=== PATIENT | female | born 1950 | race African-American/Black ===

== ENCOUNTER 2018-02-07 11:56 | Observation (INO) | payer MEDICARE ==
[2018-02-07] MEDS ORDERED: Water For Inject, Bacteriostat 30 ML ONE (12:36)
[2018-02-07] MEDS ORDERED: methylPREDNISolone Sod Succ/PF 125 MG/2 ML VIAL ONE (12:36)
[2018-02-07] MEDS ORDERED: Albuterol Sulfate 2.5 mg/3 ml Neb ONE (12:44)
[2018-02-07] MEDS ORDERED: Albuterol Sulfate 2.5 mg/0.5 ml Neb ONE (12:44)
[2018-02-07 12:55] LABS: Bilirubin Negative (Negative); Blood, Urine Trace (Negative); Clarity CLEAR (Clear); Glucose, Urine (Dipstick) 100 mg/dL (Negative); Leukocyte Negative (Negative); Nitrite Negative (Negative); Protein, Urine (Dipstick) 100 mg/dL (Neg-Trace); Urobilinogen 0.2 mg/dL (0.2-1.0)
[2018-02-07 12:57] LABS: Bacteria/HPF None Seen HPF (None Seen); Hyaline Casts/LPF 0-3 HYALINE CAST LPF (0-3 Hyaline); Pathc Cast-AUWi Flag 0.14 (0-2.49); RBC/HPF 0-3 HPF (0-3); Squamous Epithelial 0-3 HPF (0-3); WBC/HPF 0-3 HPF (0-3)
[2018-02-07 12:58] LABS: #Basophils 0.1 thou/uL (0.0-0.2); #Lymphocytes 0.5 thou/uL (1.20-3.40); #Monocytes 0.3 thou/uL (0.11-0.59); #Neutrophils 6.3 thou/uL (1.40-6.50); %Eosinophils 0.4 % (0.0-10.0); %Lymphocytes 6.8 % (21.0-51.0); %Monocytes 4.7 % (0.0-10.0); %Neutrophils 87.1 % (42.0-75.0); Hemoglobin 11.1 g/dL (12.0-16.0); Mean Corpuscular HGB CONC 30.1 g/dL (32.0-36.0); Mean Corpuscular Hemoglobin 24.4 pg (27.0-31.0); Mean Platelet Volume 8.6 fL (7.4-10.4); Platelet Count 257 thou/uL (130-400); RBC Distribution Width 16.6 % (11.5-14.5); Red Blood Cell (RBC) Count 4.57 mill/uL (4.20-5.40); White Blood Cell (WBC) Count 7.2 thou/uL (4.8-10.8)
--- NOTE | 2018-02-07 13:05 | RAD ---
PORTABLE CHEST ONE VIEWS: 02/07/2018 12:27 p.m. HISTORY: Shortness of breath. COMPARISON: 02/02/2018 FINDINGS: The heart size is enlarged but stable. The aorta is normal. The lungs are well expanded without foc al areas of consolidation, pneumothorax, rizwan pulmonary edema, or pleural effusions. There are dege nerative changes in the spine. IMPRESSION: No acute process. POS: ALPHONSO
[2018-02-07 13:19] LABS: ALT (SGPT) 115 U/L (8-55); AST (SGOT) 68 U/L (5-34); Albumin 4.2 g/dL (3.4-4.8); Alkaline Phosphatase 140 U/L (40-150); Anion Gap 15 mmol/L (10-20); BUN (Urea Nitrogen) 13 mg/dL (9.8-20.1); Bilirubin, Total 0.3 mg/dL (0.2-1.2); CK (CPK) 208 U/L (29-168); Calc. Creatinine Clearance 0 mL/min (70-130); Calcium 9.1 mg/dL (7.8-10.44); Carbon Dioxide 29 mmol/L (23-31); Chloride 105 mmol/L (98-107); Estimated GFR-MDRD 66; Globulin 2.7 g/dL (2.4-3.5); Glucose 105 mg/dL (80-115); Lipase 20 U/L (8-78); Magnesium 1.8 mg/dL (1.6-2.6); Protein, Total 6.9 g/dL (6.0-8.3); Sodium 145 mmol/L (136-145)
[2018-02-07 13:22] LABS: CKMB 6.3 ng/mL (0-6.6); Troponin I 0.082 ng/mL (< 0.028)
--- NOTE | 2018-02-07 15:23 | HP ---
PRIMARY CARE PHYSICIAN: The patient was following Dr. Bull at [place], but now she changed p [facility] care physician to Dr. Denis Lin at [facility]. REASON FOR ADMISSION: COPD and CHF exacerbation. HISTORY OF PRESENT ILLNESS: A 67-year-old female who has end-stage COPD, chronic re spiratory failure with hypoxia on home oxygen therapy as well as chronic diastolic heart failure who came to emergency room with complaint of shortness of breath and chest pain. Patient has chronic quin rtness of breath, but for last 2-3 days, she was having worsening shortness of breath. Today, she wa s also experiencing chest pain, which was across the chest without any radiation, associated with mil d nausea, but no vomiting. She did not have any fever, chills, or flu-like illness. She also denies any cough. She denies any recent travel or sick exposure. She denies any lower extremity edema or calf tenderness. She denies any hemoptysis, pleuritic chest pain. She denies any syncope, but she f eels dizziness on coughing spell. She does have chronic orthopnea. She denies any PND. She denies any UTI symptoms. She denies any constipation, diarrhea, melena, or hematochezia. Patient also had several emergency room visits latterly at the [place] as well as in our hospita , but most of the time after respiratory therapy, the patient gets better and she declines hospitali zation. Today in the emergency room, patient was feeling better after breathing treatment, but when she walked to the bathroom, she was having chest pain and shortness of breath and that is why she agr eed to stay in hospital. Patient was given DuoNeb therapy, albuterol nebulization, Solu-Medrol 125 mg prior to arrival by [facility]. REVIEW OF SYSTEMS: The following complete review of systems was negative, unless otherwise mentioned in the HPI or below: Constitutional: Weight loss or gain, ability to conduct usual activities. Skin: Rash, itching. Eyes: Double vision, pain. ENT/Mouth: Nose bleeding, neck stiffness, pain, tenderness. Cardiovascular: Palpitations, dyspnea on exertion, orthopnea. Respiratory: Shortness of breath, wheezing, cough, hemoptysis, fever or night sweats. Gastrointestinal: Poor appetite, abdominal pain, heartburn, nausea, vomiting, constipation, or diarr hea. Genitourinary: Urgency, frequency, dysuria, nocturia. Musculoskeletal: Pain, swelling. Neurologic/Psychiatric: Anxiety, depression. Allergy/Immunologic: Skin rash, bleeding tendency. Please see my HPI for pertinent positive and negative. All other review of systems reviewed and nega tive except as mentioned in the HPI. PAST MEDICAL HISTORY: Chronic respiratory failure on home oxygen 3 liter nasal cannula, COPD, chroni c diastolic heart failure, history of CVA, hypertension, chronic low back pain. The patient reports that she has history of lupus and history of uterine cancer, hyperthyroidism. PAST SURGICAL HISTORY: Hysterectomy, oophorectomy. PAST PSYCHIATRIC HISTORY: Bipolar disorder. ALLERGIES: SULFA DRUGS and LATEX. FAMILY HISTORY: Positive for hypertension and dementia to her mother. No family history of coronary artery disease, stroke or cancer. SOCIAL HISTORY: The patient is intermittently smoking, but she was a heavy smoker in the past. She drinks alcohol socially. She denies any other illicit drug abuse. She lives with her grandchildren. CURRENT HOME MEDICATIONS: Toprol-XL 100 mg p.o. daily, aspirin 325 mg p.o. daily, nitroglycerin 0.4 mg sublingual p.r.n., Imdur 60 mg p.o. daily, multivitamin 1 tablet p.o. daily, Spiriva 18 mcg inhala tion daily, lisinopril with hydrochlorothiazide 20/25 one tablet p.o. daily, prednisone as needed bas is, tramadol 50 mg q.8 hours p.r.n., Singulair 10 mg p.o. daily, propylthiouracil 50 mg p.o. twice da inez. ADDITIONAL HISTORY: Patient reports that she ran out prednisone and tramadol, and she was taking her niece prescription. EMERGENCY ROOM COURSE: Patient is given albuterol nebulization, DuoNeb therapy, Solu-Medrol 125 mg. PHYSICAL EXAMINATION: VITAL SIGNS: On arrival, blood pressure 176/112, pulse 87, respiratory rate 27, temperature 98.6, sa turation 97% on 3 liter oxygen. Weight 68 kilograms. GENERAL: The patient is currently chronically ill, tachypneic, no obvious acute distress. HEENT: Head is normocephalic, atraumatic. Eyes: Pupils round, reactive to light. Extraocular musc le intact. ENT: Oropharynx within normal limits. Moist mucous membranes. No oral lesion, no phary ngeal erythema, no exudate. NECK: Supple, no JVD, no thyromegaly, no carotid bruit. LUNGS: Bibasilar rales noted. Air entry reduced. Few end expiratory wheezing heard. CARDIAC: S1, S2 regular. No gross murmur noted, no gallop, no rub. ABDOMEN: Soft, bowel sounds present, nontender, nondistended. No organomegaly, no mass, no suprapub ic tenderness. BACK: Unremarkable, no CVA tenderness. EXTREMITIES: Upper extremity, passive movement of all joints are normal. Lower extremity, no edema . Good peripheral pulsation. SKIN: No skin rash. HEMATOLOGICAL: No lymphadenopathy. PSYCHIATRIC: Normal affect. NEUROLOGIC: Nonfocal examination. Speech normal. SIGNIFICANT LABORATORY DATA AND IMAGING: EKG showing premature supraventricular complexes, nonspecif ic ST-T changes, LVH, left atrial enlargement. Chest x-ray: COPD changes, no acute cardiopulmonary process. CBC: WBC 7.2, hemoglobin 11.1, platelet of 257,000. BMP: Sodium 145, potassium 4.0, chlo ride 105, carbon dioxide 29, anion gap 15, BUN 13, creatinine 1.01, glucose 105, calcium 9.1, magnesi um 1.8. LFT: AST 68, ALT 115, albumin 4.2, CK 208, CK-MB 6.3, troponin I 0.082. BNP 2501.4, lipase 20. Urinalysis unremarkable. ASSESSMENT AND PLAN: 1. Acute on chronic respiratory failure with hypoxia. The patient is using 3 liter nasal cannula ox ygen. Initially, patient was hypoxic and now stabilized with her basal home oxygen 3 liter nasal can nula and maintaining saturation very well, most likely related with underlying chronic obstructive p ulmonary disease and congestive heart failure exacerbation. 2. Chronic obstructive pulmonary disease exacerbation. We will continue DuoNeb therapy every 4 hour ly, Dulera two puffs inhalation b.i.d. We will also continue her home Spiriva 18 mcg inhalation tristin y, along with the Solu-Medrol 40 mg IV q.6 hours, Mucinex 600 mg twice daily and empiric antibiotic t herapy with Levaquin 500 mg daily, Mucinex 600 mg twice daily. We will consider changing to predniso ne and tapered dose tomorrow. We will also consider changing to p.o. antibiotic therapy tomorrow. 3. Congestive heart failure exacerbation. We will obtain echocardiography, most likely diastolic he art failure. She might have underlying chronic hypoxia related pulmonary hypertension and passive co ngestion in her liver. At this point, we will obtain echocardiography to assess ejection fraction an d other structural abnormality. We will also give her Lasix 20 mg IV b.i.d. 4. Elevated troponin. We will do serial cardiac enzymes x3 to rule out acute coronary syndrome. I am suspecting this is probably demand ischemia. We will continue with aspirin 81 mg p.o. daily. We are going to obtain echocardiography to assess ejection fraction and other structural abnormality and we will control blood pressure. We will check lipid profile for risk stratification. 5. Transaminitis. We will check hepatitis profile. I am suspecting this abnormal LFT related with her passive congestion, but we will repeat LFT tomorrow and we will rule out any hepatitis. 6. Hyperthyroidism. We will check TSH and free T4 tomorrow and continue propylthiouracil 50 mg p.o. twice daily. 7. Hypertension. Currently, not well controlled. We will continue lisinopril with hydrochlorothiaz julio 20/25 one tablet p.o. daily. We will use hydralazine on p.r.n. basis. We will also continue nit ropatch q.8 hourly. 8. Chest pain. The patient had a couple of times chest pain today, which is atypical, most likely r elated with her dyspnea. We will do serial cardiac enzymes to rule out acute coronary syndrome. We will obtain echocardiography. We will check lipid profile. We will continue with aspirin 325 mg p.o . daily, nitropatch q.8 hourly. Given her history of chronic obstructive pulmonary disease, we will try to change her Toprol-XL to Coreg to prevent bronchospasm. 9. Protein calorie malnutrition, mild. The patient will be given nutritional supplement while in [facility]. 10. History of coronary artery disease. We will continue nitropatch q.8 hourly along with aspirin, REBECCA inhibitor. 11. Deep venous thrombosis prophylaxis. Lovenox 30 mg subcutaneously daily. 12. Gastrointestinal prophylaxis, Pepcid 20 mg p.o. b.i.d. 13. Code status: The patient is FULL CODE. Patient's daughter is surrogate decision maker. Disposition plan based on clinical course. At this point, we are expecting that patient will stay in hospital 24-48 hours. The patient by herself wants to go home tomorrow if possible. We will keep a s observation status.
[2018-02-07] MEDS ORDERED: hydrALAZINE 20 MG/ML VIAL SLOW IVP PRN (15:37)
[2018-02-07] MEDS ORDERED: Loratadine 10 MG TAB PO PRN (15:37)
[2018-02-07] MEDS ORDERED: Artificial Tears 18 DROP/0.9 ML EA EYE PRN (15:37)
[2018-02-07] MEDS ORDERED: Ondansetron HCl/PF 4 MG/2 ML Vial IVP PRN (15:37)
[2018-02-07] MEDS ORDERED: Chloraseptic Spray 180 ml Bottle PO PRN (15:37)
[2018-02-07] MEDS ORDERED: Milk Of Magnesia 30 ML UDCUP PO PRN (15:37)
[2018-02-07] MEDS ORDERED: Acetaminophen 325 MG TAB PO PRN (15:37)
[2018-02-07] MEDS ORDERED: Benzonatate 100 MG CAP PO PRN (15:37)
[2018-02-07] MEDS ORDERED: Loperamide HCl 2 MG CAP PO PRN (15:37)
[2018-02-07] MEDS ORDERED: Sodium Chloride 0.65% Nasal 44 ML BOT EA NARE PRN (15:37)
[2018-02-07] MEDS ORDERED: Eucerin (Mineral Oil/Petrolatum,White) 30 gm Jar TOP PRN (15:37)
[2018-02-07] MEDS ORDERED: Nitroglycerin 0.4 MG TAB (25 Tab Bottle) SL PRN (15:37)
[2018-02-07] MEDS ORDERED: HYDROcodone/Acetaminophen 5/325 mg Tablet PO PRN (15:37)
[2018-02-07] MEDS ORDERED: Diabetic Tussin 200 MG/10 ML UDCUP PO PRN (15:37)
[2018-02-07] MEDS ORDERED: cloNIDine 0.1 MG TAB PO PRN (15:37)
[2018-02-07] MEDS ORDERED: Zolpidem Tartrate 5 MG TAB PO PRN (15:37)
[2018-02-07] MEDS ORDERED: Mag-Al 1200 mg/1200 mg/30 ML UDCUP PO PRN (15:37)
[2018-02-07] MEDS ORDERED: Senokot 8.6 MG TAB PO PRN (15:37)
[2018-02-07 16:52] LABS: Troponin I 0.077 ng/mL (< 0.028)
[2018-02-07] MEDS: Mometasone/Formoterol 120 PUFF INHALER INH SCH (18:45)
[2018-02-07 19:29] LABS: Troponin I 0.068 ng/mL (< 0.028)
[2018-02-07] MEDS: Propylthiouracil 50 MG TAB PO SCH (21:01)
[2018-02-07] MEDS: Nitroglycerin 2% Ointment 1 INCH/1 GM Packet TOP SCH (21:01)
[2018-02-07] MEDS: guaiFENesin ER 600 MG TAB PO SCH (21:02)
[2018-02-07] MEDS: Famotidine 20 MG TAB PO SCH (21:02)
[2018-02-07] MEDS: Montelukast Sodium 10 mg Tablet PO SCH (21:02)
[2018-02-08 05:15] LABS: #Lymphocytes 0.3 thou/uL (1.20-3.40); #Monocytes 0.2 thou/uL (0.11-0.59); #Neutrophils 6.9 thou/uL (1.40-6.50); %Basophils 0.1 % (0.0-1.0); %Eosinophils 0.1 % (0.0-10.0); %Lymphocytes 4.1 % (21.0-51.0); %Monocytes 2.4 % (0.0-10.0); %Neutrophils 93.2 % (42.0-75.0); Hemoglobin 10.2 g/dL (12.0-16.0); Mean Corpuscular HGB CONC 31.2 g/dL (32.0-36.0); Mean Corpuscular Hemoglobin 24.4 pg (27.0-31.0); Mean Corpuscular Volume 78.2 fl (81.0-99.0); Mean Platelet Volume 8.4 fL (7.4-10.4); Platelet Count 250 thou/uL (130-400); RBC Distribution Width 16.4 % (11.5-14.5); Red Blood Cell (RBC) Count 4.18 mill/uL (4.20-5.40); White Blood Cell (WBC) Count 7.4 thou/uL (4.8-10.8)
[2018-02-08 05:31] LABS: ALT (SGPT) 88 U/L (8-55); AST (SGOT) 39 U/L (5-34); Albumin 3.7 g/dL (3.4-4.8); Alkaline Phosphatase 114 U/L (40-150); Anion Gap 10 mmol/L (10-20); BUN (Urea Nitrogen) 21 mg/dL (9.8-20.1); Bilirubin, Total 0.2 mg/dL (0.2-1.2); Calc. Creatinine Clearance 31 mL/min (70-130); Calcium 9.3 mg/dL (7.8-10.44); Carbon Dioxide 28 mmol/L (23-31); Cardiac Risk 2.5 (Less than 4.5); Chloride 105 mmol/L (98-107); Cholesterol 193 mg/dl (< 200 Desired); Estimated GFR-MDRD 52; Globulin 2.7 g/dL (2.4-3.5); Glucose 146 mg/dL (80-115); HDL Cholesterol 78 mg/dL (>60 Neg Risk); LDL Cholesterol, Calculated 109 mg/dL; Potassium 3.8 mmol/L (3.5-5.1); Protein, Total 6.4 g/dL (6.0-8.3); Sodium 139 mmol/L (136-145); Triglycerides 31 mg/dL (Less than 150); Uric Acid 4.9 mg/dL (2.6-6.0)
[2018-02-08] MEDS: Furosemide 20 MG/2 ML VIAL SLOW IVP SCH ×2 (05:35→16:31)
[2018-02-08] MEDS: Nitroglycerin 2% Ointment 1 INCH/1 GM Packet TOP SCH ×3 (05:41→23:10)
[2018-02-08 05:44] LABS: Free T4 (Free Thyroxine) 1.15 ng/dL (0.70-1.48)
[2018-02-08 05:58] LABS: HBCM Index 0.06 S/CO (0-0.79); HBSAg Index 0.23 S/CO (0-0.99); Hep A IgM AB Non-Reactive (NonReactive); Hep A IgM S/CO 0.12 S/CO (0-0.79); Hep B Surf Ag Non-Reactive S/CO (NonReactive); Hep C IgG Ab Non-Reactive (NonReactive); Hep C Index 0.21 S/CO (0-0.79); Hepatitis B Core IGM Abs Non-Reactive (NonReactive)
[2018-02-08] MEDS: Mometasone/Formoterol 120 PUFF INHALER INH SCH ×2 (06:28→18:09)
[2018-02-08] MEDS ORDERED: Spiriva 18 MCG CAP (Box of 5 Caps) INH SCH (07:00)
[2018-02-08] MEDS: Lisinopril/Hydrochlorothiazide 20/25 mg Tablet PO SCH (09:54)
[2018-02-08] MEDS: Propylthiouracil 50 MG TAB PO SCH ×2 (09:54→20:19)
[2018-02-08] MEDS: Famotidine 20 MG TAB PO SCH ×2 (09:54→20:16)
[2018-02-08] MEDS: Multivitamin W/ Minerals 1 TAB PO SCH (09:54)
[2018-02-08] MEDS: Aspirin 325 MG TAB PO SCH (09:54)
[2018-02-08] MEDS: guaiFENesin ER 600 MG TAB PO SCH ×2 (09:54→20:18)
[2018-02-08] MEDS: Enoxaparin Sodium 30 MG/0.3 ML SYRINGE SC SCH (09:55)
[2018-02-08] MEDS: Ondansetron ODT 4 MG TAB PO PRN ×2 (12:25→23:19)
[2018-02-08 13:53] VITALS: BMI 17.8
[2018-02-08] MEDS: Montelukast Sodium 10 mg Tablet PO SCH (20:18)
--- NOTE | 2018-02-08 21:48 | PDOC.PN ---
- Subjective Encounter Start Date: 02/08/18 Encounter Start Time: 14:00 Subjective: nsg notes rev, gabriela ovn, pt still c/o SOB and feeling weak - Objective Resuscitation Status: Resuscitation Status FULL:Full Resuscitation Vital Signs & Weight: Vital Signs (12 hours) Temp Pulse Resp BP Pulse Ox 02/08/18 21:31 87 16 98 02/08/18 18:45 98.0 F 94 12 124/82 99 02/08/18 18:08 85 16 98 02/08/18 15:17 98.3 F 88 18 122/75 98 02/08/18 14:44 88 16 02/08/18 11:16 98.4 F 97 20 180/103 H 100 02/08/18 09:54 100 Weight Admit Weight 103 lb Weight 103 lb 12.8 oz I&O: 02/07/18 02/08/18 02/09/18 06:59 06:59 06:59 Intake Total 720 2 Balance 720 2 Result Diagrams: 02/08/18 04:30 02/08/18 04:30 Phys Exam - Physical Examination Constitutional: NAD seated in hospital bed, NC in place HEENT: moist MMs, sclera anicteric, oral pharynx no lesions Respiratory: no wheezing, no rales, no rhonchi, clear to auscultation bilateral diminished and coarse throughout Cardiovascular: RRR, no significant murmur, no rub Gastrointestinal: soft, no distention, positive bowel sounds Musculoskeletal: pulses present Neurological: moves all 4 limbs Psychiatric: normal affect Dx/Plan - Plan * hypoxic respiratory failure * appears that perhaps there has been a subacute process on top of chronic hypoxic respiratory failure * last saw a research assoc several years ago - a research assoc "put her on" oxygen * has never seen a project estimator * unclear if this is related primarily to COPD vs CHF, pending ECHO, likely mixed etiology COPD * continue empiric txmt for flare incl: nebs, steroids, empiric abx, supplemental O2 concern for CHF * continue current regimen * pending ECHO * suspect diastolic HF diet: cardiac activity: as jesika dvt ppx social: 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 daughter also diagnosed this week with lung cancer. Review of Systems - Medications/Allergies Allergies/Adverse Reactions: Allergies Allergy/AdvReac Type Severity Reaction Status Date / Time lanolin Allergy Verified 02/07/18 16:42 latex Allergy Verified 02/07/18 16:42 Sulfa (Sulfonamide Allergy Verified 02/07/18 16:42 Antibiotics) Medications: Current Medications Acetaminophen (Tylenol) 650 mg PO Q4H PRN PRN Reason: Headache/Fever or Pain Hydrocodone Bitart/Acetaminophen ([place] 5/325) 1 tab PO Q4H PRN PRN Reason: Moderate Pain (4-6) Last Admin: 02/07/18 22:28 Dose: 1 tab Al Hydroxide/Mg Hydroxide (Maalox) 30 ml PO Q6H PRN PRN Reason: Heartburn or Indigestion Albuterol/Ipratropium (Duoneb) 3 ml NEB [id number] [facility] Last Admin: 02/08/18 21:31 Dose: 3 ml Artificial Tears (Tears Naturale) 0 drop EA EYE PRN PRN PRN Reason: Dry Eyes Aspirin (Aspirin) 325 mg PO DAILY [facility] Last Admin: 02/08/18 09:54 Dose: 325 mg Benzonatate (Tessalon) 100 mg PO Q4H PRN PRN Reason: Cough Last Admin: 02/08/18 12:20 Dose: 100 mg Clonidine (Catapres) 0.1 mg PO Q4H PRN PRN Reason: Systolic BP > 180 Last Admin: 02/08/18 14:13 Dose: 0.1 mg Enoxaparin Sodium (Lovenox) 30 mg SC 0900 [facility] Last Admin: 02/08/18 09:55 Dose: 30 mg Famotidine (Pepcid) 20 mg PO BID [facility] Last Admin: 02/08/18 20:16 Dose: 20 mg Furosemide (Lasix) 20 mg SLOW IVP 0600,1400 [facility] Last Admin: 02/08/18 16:31 Dose: 20 mg Guaifenesin (Robitussin Sf) 200 mg PO Q4H PRN PRN Reason: Cough Guaifenesin (Mucinex) 600 mg PO Q12HR [facility] Last Admin: 02/08/18 20:18 Dose: 600 mg Lisinopril/HCTZ (Prinizide 20-25) 1 tab PO DAILY [facility] Last Admin: 02/08/18 09:54 Dose: 1 tab Hydralazine HCl (Apresoline) 10 mg SLOW IVP Q4H PRN PRN Reason: Systolic BP > 180 Levofloxacin 500 mg/ Device 100 mls @ 100 mls/hr IVPB Q24HR [facility] Last Admin: 02/08/18 16:34 Dose: 100 mls Iron/Minerals/Multivitamins (Theragran M) 1 tab PO DAILY [facility] Last Admin: 02/08/18 09:54 Dose: 1 tab Loperamide HCl (Imodium) 2 mg PO PRN PRN PRN Reason: Diarrhea/Loose Stools Loratadine (Claritin) 10 mg PO DAILYPRN PRN PRN Reason: Sinus Symptoms Magnesium Hydroxide (Milk Of Magnesium) 30 ml PO DAILYPRN PRN PRN Reason: Constipation Methylprednisolone Sodium Succinate (Solu-Medrol) 40 mg IVP Q6HR [facility] Last Admin: 02/08/18 17:46 Dose: 40 mg Mineral Oil/White Petrolatum (Eucerin Cream) 0 gm TOP BIDPRN PRN PRN Reason: Dry Skin Mometasone Furoate/Formoterol Fumar (Dulera 200 Mcg/5 Mcg Inhaler) 2 puff INH BID-RT [facility] Last Admin: 02/08/18 18:09 Dose: 2 puff Montelukast Sodium (Singulair) 10 mg PO QPM [facility] Last Admin: 02/08/18 20:18 Dose: 10 mg Nitroglycerin (Nitrostat) 0.4 mg SL Q5MIN PRN PRN Reason: Chest Pain Nitroglycerin (Nitro-Bid 2% Ointment) 0.5 inch TOP Q8HR [facility] Last Admin: 02/08/18 14:13 Dose: 0.5 inch Ondansetron HCl (Zofran Odt) 4 mg PO Q6H PRN PRN Reason: Nausea/Vomiting Last Admin: 02/08/18 12:25 Dose: 4 mg Ondansetron HCl (Zofran) 4 mg IVP Q6H PRN PRN Reason: Nausea/Vomiting Phenol (Chloraseptic Romeo 180 Ml Bot) 0 ml PO PRN PRN PRN Reason: Sore Throat Propylthiouracil (Propylthiouracil) 50 mg PO Q12HR [facility] Last Admin: 02/08/18 20:19 Dose: 50 mg Senna (Senokot) 2 tab PO HSPRN PRN PRN Reason: Constipation Sodium Chloride ([place] Nasal Romeo 0.65%) 0 ml EA NARE QIDPRN PRN PRN Reason: Nasal Congestion Zolpidem Tartrate (Ambien) 5 mg PO HSPRN PRN PRN Reason: Insomnia
[2018-02-09] MEDS: Nitroglycerin 2% Ointment 1 INCH/1 GM Packet TOP SCH ×2 (05:11→13:45)
[2018-02-09] MEDS: Furosemide 20 MG/2 ML VIAL SLOW IVP SCH ×2 (05:16→14:49)
[2018-02-09] MEDS: Mometasone/Formoterol 120 PUFF INHALER INH SCH (08:09)
[2018-02-09] MEDS: Enoxaparin Sodium 30 MG/0.3 ML SYRINGE SC SCH (09:50)
[2018-02-09] MEDS: Aspirin 325 MG TAB PO SCH (09:51)
[2018-02-09] MEDS: guaiFENesin ER 600 MG TAB PO SCH (09:51)
[2018-02-09] MEDS: Famotidine 20 MG TAB PO SCH (09:51)
[2018-02-09] MEDS: Propylthiouracil 50 MG TAB PO SCH (09:51)
[2018-02-09] MEDS: Lisinopril/Hydrochlorothiazide 20/25 mg Tablet PO SCH (09:51)
[2018-02-09] MEDS: Multivitamin W/ Minerals 1 TAB PO SCH (09:51)
[2018-02-09] MEDS ORDERED: predniSONE 20 MG TAB PO SCH (12:15)
[2018-02-09 12:19] VITALS: TEMP 97.5
[2018-02-09 12:45] LABS: #Lymphocytes 0.3 thou/uL (1.20-3.40); #Monocytes 0.6 thou/uL (0.11-0.59); %Basophils 0.2 % (0.0-1.0); %Eosinophils 0.1 % (0.0-10.0); %Monocytes 4.5 % (0.0-10.0); %Neutrophils 93.2 % (42.0-75.0); Hemoglobin 10.5 g/dL (12.0-16.0); Mean Corpuscular Hemoglobin 24.4 pg (27.0-31.0); Mean Corpuscular Volume 78.6 fl (81.0-99.0); Mean Platelet Volume 8.4 fL (7.4-10.4); Platelet Count 287 thou/uL (130-400); RBC Distribution Width 16.7 % (11.5-14.5); White Blood Cell (WBC) Count 13.9 thou/uL (4.8-10.8)
[2018-02-09 13:06] LABS: Anion Gap 16 mmol/L (10-20); BUN (Urea Nitrogen) 48 mg/dL (9.8-20.1); Calc. Creatinine Clearance 23 mL/min (70-130); Calcium 8.7 mg/dL (7.8-10.44); Carbon Dioxide 27 mmol/L (23-31); Chloride 97 mmol/L (98-107); Estimated GFR-MDRD 36; Glucose 131 mg/dL (80-115); Sodium 136 mmol/L (136-145)
[2018-02-09 16:17] VITALS: BP 165/85
[2018-02-09] MEDS: Ondansetron ODT 4 MG TAB PO PRN (17:28)
[2018-02-10] MEDS ORDERED: predniSONE 20 MG TAB PO SCH (09:00)
== END 2018-02-09 18:41 | disposition home or self-care (01) ==
LOC: ERS 11:56 → 2SW 14:28
PROVIDERS: ADMIT Internal Medicine; ATTEND Internal Medicine
DX: J96.21 Acute and chronic respiratory failure with hypoxia (principal); J44.1 Chronic obstructive pulmonary disease with (acute) exacerbation; I11.0 Hypertensive heart disease with heart failure; I50.32 Chronic diastolic (congestive) heart failure; R79.89 Other specified abnormal findings of blood chemistry; R74.0 Nonspecific elevation of levels of transaminase and lactic acid dehydrogenase [LDH]; E05.90 Thyrotoxicosis, unspecified without thyrotoxic crisis or storm; R07.89 Other chest pain; E44.1 Mild protein-calorie malnutrition; I25.10 Atherosclerotic heart disease of native coronary artery without angina pectoris; M54.5 Low back pain; G89.29 Other chronic pain; M32.9 Systemic lupus erythematosus, unspecified; F31.9 Bipolar disorder, unspecified; F17.200 Nicotine dependence, unspecified, uncomplicated; Z68.1 Body mass index [BMI] 19.9 or less, adult; Z99.81 Dependence on supplemental oxygen; Z79.82 Long term (current) use of aspirin; Z79.52 Long term (current) use of systemic steroids; Z79.2 Long term (current) use of antibiotics; Z79.899 Other long term (current) drug therapy; Z88.8 Allergy status to other drugs, medicaments and biological substances; Z88.2 Allergy status to sulfonamides; Z91.040 Latex allergy status; Z90.710 Acquired absence of both cervix and uterus; Z90.721 Acquired absence of ovaries, unilateral; Z86.73 Personal history of transient ischemic attack (TIA), and cerebral infarction without residual deficits; Z85.42 Personal history of malignant neoplasm of other parts of uterus
CPT/HCPCS: 71045; 80048; 80053; 80061; 80074; 82550; 82553; 83690; 83735; 83880; 84439; 84481; 84484 ×2; 84550; 85025 ×2; 93005; 93306; 93798; 94640 ×7; 94760; 96372; 96374; 96375; 96376 ×3; 99285; G0378 ×2; 36415; 81003; 81015; 84443; J1650; J1940; J1956; J2920; J2930; J7506; J7611; J7620; Q0162